=== PATIENT | female | born 1985 | race Caucasian/White ===

== ENCOUNTER 2021-08-02 17:00 | Emergency (ER) | payer MEDICAID, SELFPAY ==
[2021-08-02 17:52] VITALS: BP 129/81; PULSE 101; RESP 16; TEMP 36.6; O2SAT 98; BMI 28.3
--- NOTE | 2021-08-02 17:54 | HMH.EDUTC ---
[facility] Disposition Clinical Impression: UTI (urinary tract infection) Qualifiers: Urinary tract infection type: acute cystitis Hematuria presence: without hematuria Qualified Code(s): N30.00 - Acute cystitis without hematuria Disposition: Home, Self-Care Condition on Discharge: Good Instructions: DI for Urinary Tract Infection (UTI) Additional Instructions: Increase fluids, water and not soda or tea. Can drink cranberry juice or cranberry extract. White front to back Wear cotton underwear Empty bladder after intercourse Start antibiotics immediately and make sure you take the full course although you may start to see improvement over the next 48 hours. You can eat yogurt or take probiotics to decrease diarrhea or yeast infection caused by the antibiotic Be sure to follow-up anytime for new or worsening symptoms in 48 hours for wound urine culture results be sure to let you PCP no recent urine for culture so they can request records and ensure that you have appropriate antibiotic if you are not getting better or getting worse. If symptoms worsen or do not improve return or be seen in the ER. Follow-up with primary care this week. Prescriptions: cephALEXin [Cephalexin 500mg Tab] 500 mg PO BID 7 Days #14 tab Prescription Printed Referrals: Wendy Jarrell APRN [Primary Care Provider] - Time of Disposition: 17:58 Medical Decision Making - Michel Inquiry Pt receiving controlled substance: No Orders (Tests/Meds): ORDERS Category Date Time Status Covid-19 Nasal PCR ([facility]) Routine Lab 08/02/21 17:49 Ordered [facility] HPI - General Chief complaint: Urgent Treatment Center Stated complaint: spot on tounge,sore throat,vomiting,pain back of Time Seen by Provider: 08/02/21 17:54 Mode of Arrival: Ambulatory Source of Information: Patient Limitations: No Limitations - History of Present Illness Provider Complaint: 36 yr old female presents for burning with voiding,freq,urgency and urine has a strong odor, pt states feels like her normal uti,pt states she gets them freq. pt states nasal congestion,sore throat and body aches. wants a covid test - Related Data Previous Rx's Medication Instructions Recorded cephALEXin [Cephalexin 500mg Tab] 500 mg PO BID 7 Days #14 tab 08/02/21 [facility] History - Hepatitis A Screen Attestation statement:: This patient has been screened for Hepatitis A risk factors. I have reviewed the patient's past medical history: Yes ROS Obtained: Yes Systems reviewed as appropriate & no additional complaints - Constitutional Constitutional: Reports system reviewed and no additional complaints, except as docu, Reports body ache, Denies fever(s) - Eyes Eyes: Reports system reviewed and no additional complaints, except as docu, Denies change in vision - ENT Ears, Nose, Mouth, and Throat: Reports system reviewed and no additional complaints, except as docu, Reports nasal congestion, Reports nasal discharge, Reports sore throat - Cardiovascular Cardiovascular: Reports system reviewed and no additional complaints, except as docu, Denies chest pain - Respiratory Respiratory: Reports system reviewed and no additional complaints, except as docu, Denies chest congestion - Gastrointestinal Gastrointestingal: Reports: system reviewed and no additional complaints, except as docu, nausea. Denies: abdominal pain - Genitourinary Female Genitourinary: Reports system reviewed and no additional complaints, except as docu, Reports dysuria, Reports urinary frequency, Reports urinary hesitancy, Reports urinary urgency - Musculoskeletal Musculoskeletal: Reports system reviewed and no additional complaints, except as docu, Denies abnormal gait - Integumentary/Breasts Skin/Breast: Reports system reviewed and no additional complaints, except as docu, Denies rash - Neurologic Neurologic: Reports system reviewed and no additional complaints, except as docu, Denies dizziness - Endocrine Endocrine: Reports
[2021-08-02 18:00] LABS: Apearance,Urine Clear (Clear); Bilirubin,Urine Negative (Negative); Blood, Urine Negative (Negative); Color,Urine Yellow (Yellow); Glucose,Urine (UA) Negative (Negative); Ketones,Urine Negative (Negative); Protein,Urine Negative (Negative); UTC Leukocyte Esterase,Urine Negative (Negative); UTC Nitrate,Urine Negative (Negative); Urobilinogen,Urine 0.2 EU/dl (0.2)
[2021-08-02 18:04] VITALS: BP 129/81; PULSE 101; RESP 16; TEMP 36.6
== END 2021-08-02 18:08 | disposition home or self-care (01) ==
PROVIDERS: Emergency Provider Nurse Practitioner Family; PCP Nurse Practitioner Family
DX: N30.00 Acute cystitis without hematuria (principal); U07.1 COVID-19
CPT/HCPCS: 81003; 99202; C9803; G0463; U0003; U0005

== ENCOUNTER 2021-08-06 23:37 | Emergency (ER) | payer MEDICAID, SELFPAY ==
[2021-08-07 00:37] VITALS: BP 0/0; PULSE 0; RESP 0; TEMP -17.7; TEMP 0
== END 2021-08-07 00:37 | disposition left against medical advice (07) ==
LOC: ER 08-07 00:10
PROVIDERS: Emergency Provider Emergency Medicine
DX: Z53.21 Procedure and treatment not carried out due to patient leaving prior to being seen by health care provider (principal)
CPT/HCPCS: 99211

== ENCOUNTER 2021-08-21 15:15 | Emergency (ER) | payer MEDICAID, SELFPAY ==
[2021-08-21 15:16] VITALS: BP 123/87; PULSE 114; RESP 20; TEMP 36.8; O2SAT 96; BMI 26.5
--- NOTE | 2021-08-21 15:30 | HMH.EDGENADL ---
ED Disposition Clinical Impression: Urinary tract infection Qualifiers: Urinary tract infection type: site unspecified Hematuria presence: with hematuria Qualified Code(s): N39.0 - Urinary tract infection, site not specified; R31.9 - Hematuria, unspecified Disposition: Home, Self-Care Condition on Discharge: Good Instructions: DI for Urinary Tract Infection (UTI) Additional Instructions: Cipro as prescribed. Pyridium as prescribed. Additional instructions for URINARY TRACT INFECTION: Take antibiotic as prescribed. See your physician in 2-3 days for follow up and culture results. Return immediately if you have an uncontrollable fever greater than 102 degrees, severe back or abdominal pain, inability to urinate, or repetitive vomiting. Prescriptions: Ciprofloxacin HCl [Cipro 500mg Tab] 500 mg PO BID #20 tab Transmission Status: Pending to [facility] # Phenazopyridine HCl [Pyridium 200mg Tablet] 200 pow PO TID #6 tab Transmission Status: Pending to [facility] # Referrals: Provider,Referral, [Referring] - - Critical Care Critical Care Time: No Attestation: On , the high probability of a clinically significant, sudden or life threatening deterioration of the following system(s) required my full and direct attention, intervention and personal management. The time I documented below is in addition to time spent performing reported procedures but includes the following listed in this critical care notation. Medical Decision Making - Medical Records Medical records reviewed: Yes: I reviewed the patient's medical records. MR Comment: Seen in the urgent treatment center on 08/02/2021. Complained of back pain, sore throat, spot on her tongue, vomiting. Urine analysis was negative. Culture not performed. Treated with Keflex for UTI based on symptoms consistent with previous UTIs. Had a Covid test which returned positive. - Michel Inquiry Pt receiving controlled substance: No Michel was queried for this patient: Yes Vital Signs: 08/21/21 15:16 Temperature 98.3 F Temperature Source Oral Pulse Rate [Right Radial] 114 H Respiratory Rate 20 Blood Pressure [Right Arm] 123/87 Blood Pressure Mean [Right Arm] 99 Blood Pressure Source [Right Arm] Automatic Cuff Blood Pressure Position [Right Arm] Sitting 02 Sat by Pulse Oximetry 96 Oxygen Delivery Method Room Air - Lab Data Lab Results 08/21/21 15:30: Urine Color Yellow, Urine Appearance Clear, Urine pH 6.5, Ur Specific [place] 1.025, Urine Protein 3+, Urine Glucose (UA) Negative, Urine Ketones Trace, Urine Blood 3+, Urine Nitrate Positive, Urine Bilirubin 2+ A, Urine Urobilinogen 1.0, Ur Leukocyte Esterase 2+ A, Urine RBC Tntc, Urine WBC 5-10, Ur Squamous Epith Cells Occasional, Urine Bacteria 2+ 08/21/21 15:30: WBC 14.7 H, RBC 4.96, Hgb 14.9, Hct 45.1, MCV 90.9, MCH 30.0, MCHC 33.0, RDW 12.8, Plt Count 495 H, MPV 7.3 L, Neut % (Auto) 73.2, Lymph % (Auto) 18.8, [place] % (Auto) 4.5, Eos % (Auto) 2.3, Baso % (Auto) 1.1, Neut # (Auto) 10.7 H, Lymph # (Auto) 2.8, [place] # (Auto) 0.7, Eos # (Auto) 0.3, Baso # (Auto) 0.2 08/21/21 15:30: Urine HCG, Qual Negative 08/21/21 15:30: Sodium 138, Potassium 3.6, Chloride 100, Carbon Dioxide 32 H, Anion Gap 9.6, BUN 12, Creatinine 0.80, Estimated Creat Clear 104, Estimated GFR 81, Est GFR ( Amer) 98, Glucose 97, Calcium 9.1, Total Bilirubin 0.8, AST 32, ALT 21, Alkaline Phosphatase 93, Total Protein 7.5, Albumin 4.8, Globulin 2.7, Albumin/Globulin Ratio 1.8 Result diagrams: 08/21/21 15:30 08/21/21 15:30 Orders (Tests/Meds): ED MEDICATIONS Generic Name Dose Route Start Last Admin Trade Name Freq PRN Reason Stop Dose Admin Levofloxacin/Dextrose 750 mg in 150 mls @ 100 mls/hr 08/21/21 17:09 08/21/21 17:29 Levofloxacin 750mg/150ml Premix IV 08/21/21 18:38 100 mls/hr ONCE ONE Administration Discontinued Medications Generic Name Dose Route Start Last Admin Trade Na
--- NOTE | 2021-08-21 15:51 | CT_ITS ---
PROCEDURE INFORMATION: Exam: CT Abdomen And Pelvis Without Contrast Exam date and time: 08/21/2021 3:51 PM Age: 36 years old Clinical indication: Abdominal pain; Localized; Lower; Additional info: Possible kidney stone TECHNIQUE: Imaging protocol: Computed tomography of the abdomen and pelvis without contrast. Radiation optimization: All CT scans at this facility use at least one of these dose optimization techniques: automated exposure control; mA and/or kV adjustment per patient size (includes targeted exams where dose is matched to clinical indication); or iterative reconstruction. COMPARISON: No relevant prior studies available. FINDINGS: Liver: No mass. Small cyst estimated at 1 cm. Gallbladder and bile ducts: Unremarkable. No ductal dilation. Pancreas: Normal. No ductal dilation. Spleen: Normal. No splenomegaly. Adrenal glands: Normal. No mass. Kidneys and ureters: No calculus or hydronephrosis. Stomach and bowel: No acute findings. No obstruction. No mucosal thickening. Appendix: No evidence of appendicitis. Intraperitoneal space: Unremarkable. No free air. No significant fluid collection. Vasculature: No abdominal aortic aneurysm. Lymph nodes: No significant adenopathy. Urinary bladder: Unremarkable as visualized. Reproductive: Unremarkable as visualized. Bones/joints: No acute findings. Soft tissues: Unremarkable. IMPRESSION: No acute findings.
[2021-08-21 15:59] LABS: Microscopic, Urine URINE MICROSCOPIC (MICROSCOPIC)
[2021-08-21 16:06] LABS: Basophils # 0.2 K/mm3 (0-0.2); Basophils % 1.1 % (0.1-2.0); Eosinophils # 0.3 K/mm3 (0.0-0.4); Eosinophils % 2.3 % (0.1-12.0); Hematocrit 45.1 % (37.0-47.0); Hemoglobin 14.9 g/dL (12.2-16.2); Lymphocytes # 2.8 K/mm3 (0.7-4.5); Lymphocytes % 18.8 % (10-50); Mean Corpuscular Volume 90.9 fl (81-99); Mean Platelet Volume 7.3 fl (7.4-10.4); Monocytes # 0.7 K/mm3 (0.1-1.0); Monocytes % 4.5 % (1.7-9.3); Neutrophils # 10.7 K/mm3 (1.8-7.8); Neutrophils % 73.2 % (37.0-80.0); Platelet Count 495 K/mm3 (142-424); Red Blood Count 4.96 M/mm3 (4.20-5.40); Red Cell Distribution Width 12.8 % (11.5-17.5); White Blood Count 14.7 K/mm3 (4.8-10.8)
[2021-08-21 16:10] LABS: Appearance,Urine CLEAR (Clear); Blood, Urine 3+ (Negative); Color,Urine YELLOW (Yellow); Glucose,Urine (UA) Negative (Negative); Ketones,Urine TRACE (Negative); Leukocyte Esterase,Urine 2+ (Negative); Nitrate,Urine POSITIVE (Negative); PH,Urine 6.5 (5.0-8.5); Protein,Urine 3+ (Negative); Specific Gravity, Urine 1.025 (1.005-1.030)
[2021-08-21 16:17] LABS: Bilirubin,Urine 2+ (Negative); Urine Pregnancy, HCG Qual. Negative (Negative)
[2021-08-21 16:28] LABS: Alanine Aminotransferase 21 U/L (12-78); Albumin Level 4.8 g/dl (3.5-5.0); Albumin/Globulin Ratio 1.8 (1.1-1.8); Alkaline Phosphatase 93 U/L (38-126); Anion Gap 9.6 mEq/L (5-15); Aspartate Amino Transferase 32 U/L (14-36); Bilirubin,Total 0.8 mg/dl (0.2-1.3); Blood Urea Nitrogen 12 mg/dl (7-17); Calcium 9.1 mg/dl (8.4-10.2); Carbon Dioxide 32 mmol/L (22.0-30.0); Chloride 100 mmol/L (98-107); Creatinine Clearance Estimated 104 mL/min (50-200); Estimated Glomerular Filt Rate 81 ml/min (>60); GFR (African American) 98 ML/MIN (>60); Globulin 2.7 g/dL (1.3-3.2); Glucose 97 mg/dl (74-100); Potassium 3.6 mmoL/L (3.5-5.1); Sodium 138 mmol/L (136-145); Total Protein,Serum 7.5 g/dl (6.3-8.2)
[2021-08-21 16:46] LABS: Bacteria,Urine 2+ /lpf; RBC,Urine TNTC #/hpf (0-3); Squamous Epithelial Cell,Urine Occasional #/hpf (0-5)
--- NOTE | 2021-08-21 18:22 | PC.NURSE ---
Pt's family updated.
[2021-08-21 18:56] VITALS: BP 127/79; PULSE 109; RESP 18; TEMP 36.8; O2SAT 98
== END 2021-08-21 19:01 | disposition home or self-care (01) ==
PROVIDERS: Emergency Provider Emergency Medicine; PCP Family Medicine
DX: N30.01 Acute cystitis with hematuria (principal); Z87.442 Personal history of urinary calculi
CPT/HCPCS: 74176; 80053; 81001; 81025; 85025; 87086; 87088; 87186; 96365; 96375; 99283; J1956; J2405

== ENCOUNTER 2021-10-11 15:14 | Emergency (ER) | payer MEDICAID, SELFPAY ==
[2021-10-11 15:25] VITALS: BP 141/79; PULSE 82; RESP 19; TEMP 37; O2SAT 100; BMI 21.3
--- NOTE | 2021-10-11 15:46 | HMH.EDUTC ---
[facility] Disposition Clinical Impression: Possible exposure to STD Disposition: Home, Self-Care Condition on Discharge: Good Instructions: Facts About Sexually Transmitted Infections, How to Detect and Treat STDs Additional Instructions: follow up on labs and testing call for results safe sex practices if any new symptom return or be seen in ed Referrals: Jocelyn Henriquez [Primary Care Provider] - Time of Disposition: 15:56 Medical Decision Making - Michel Inquiry Pt receiving controlled substance: No Vital Signs: 10/11/21 15:25 Temperature 98.6 F Temperature Source Oral Pulse Rate [Right Brachial] 82 Respiratory Rate 19 Blood Pressure [Right Arm] 141/79 H Blood Pressure Mean [Right Arm] 99 Blood Pressure Source [Right Arm] Automatic Cuff Blood Pressure Position [Right Arm] Sitting 02 Sat by Pulse Oximetry 100 Oxygen Delivery Method Room Air Orders (Tests/Meds): ED MEDICATIONS Discontinued Medications Generic Name Dose Route Start Last Admin Trade Name Freq PRN Reason Stop Dose Admin Penicillin G Benzathine 2,400,000 unit 10/11/21 15:40 Penicillin G Benzathine 1,200,000 Units/2ml Syringe IM 10/11/21 15:41 ONCE ONE ORDERS Category Date Time Status HIV-1 Quant. RNA PCR Routine Lab 10/11/21 15:44 Ordered HSV 1 and 2-Specific Ab, IgG Stat Lab 10/11/21 15:44 Ordered Hepatitis Panel (4) Stat Lab 10/11/21 15:44 Ordered Rapid Plasma Reagin Ab Titer Stat Lab 10/11/21 15:44 Ordered [facility] HPI - General Chief complaint: Urgent Treatment Center Stated complaint: poss STD Time Seen by Provider: 10/11/21 15:46 Mode of Arrival: Ambulatory Source of Information: Patient Limitations: No Limitations Description of Symptoms (Recalled from Triage Doc. by RN): PATIENT REQUESTING CHECK FOR STD'S D/T PARTNER BEING TESTED HEENT Symptoms (Recalled from RN notes): No Resp Symptoms (Recalled from RN notes): No Skin Symptoms (Recalled from RN notes): No MS Symptoms (Recalled from RN notes): No Functional Status (Recalled from RN notes): WNL - History of Present Illness Provider Complaint: 36 yr old female presents for std testing and treatment. pt states she had sex with 2 males recently and one was treated for syphilis. her partner has symptoms ( red areas on penis) she states he had these areas prior to intercourse. pt states she did have unprotected sex and oral sex with him. pt states no discharge or burning but does have a sore throat - Related Data Allergies Allergy/AdvReac Type Severity Reaction Status Date / Time aspirin Allergy Verified 08/02/21 17:56 - Worker's Comp Is this a Worker's Comp case?: No [facility] History - Hepatitis A Screen Drug use history?: No High risk sexual behaviors?: No History of sexually transmitted infection?: No Currently employed?: No Childcare worker?: No Do you have indoor plumbing?: Yes Do you have electricity?: Yes Attestation statement:: This patient has been screened for Hepatitis A risk factors. I have reviewed the patient's past medical history: Yes ROS Obtained: Yes Systems reviewed as appropriate & no additional complaints - Constitutional Constitutional: Reports system reviewed and no additional complaints, except as docu, Denies fatigue, Denies fever(s), Denies poor appetite - Eyes Eyes: Reports system reviewed and no additional complaints, except as docu, Denies dry eyes - ENT Ears, Nose, Mouth, and Throat: Reports system reviewed and no additional complaints, except as docu, Denies abnormal hearing, Denies nasal congestion, Denies nasal discharge, Denies sinus pressure, Reports sore throat - Cardiovascular Cardiovascular: Reports system reviewed and no additional complaints, except as docu, Denies chest pain - Respiratory Respiratory: Reports system reviewed and no additional complaints, except as docu, Denies change in phlegm color - Gastrointestinal Gastrointestingal: Reports: system reviewed and no additional compl
[2021-10-11 15:55] VITALS: BP 141/79; PULSE 82; RESP 19; TEMP 37; O2SAT 100
[2021-10-14 04:56] LABS: Hep A Ab, IgM Negative (Negative); Hepatitis B Core Antibody IgM Negative (Negative); Hepatitis B Surface Antigen Negative (Negative); Hepatitis C Antibody 0.1 s/co ratio (0.0-0.9)
[2021-10-14 11:24] LABS: Rapid Plasma Reagin Ab Titer Non Reactive (NonRea<1:1)
[2021-10-14 23:17] LABS: Neisseria gonorrhoeae, NAA Negative (Negative)
[2021-10-15 03:13] LABS: HIV 1 RNA, Real time PCR <20 copies/mL (.)
== END 2021-10-11 16:10 | disposition home or self-care (01) ==
PROVIDERS: Emergency Provider Nurse Practitioner Family; PCP Family Medicine
DX: J02.9 Acute pharyngitis, unspecified (principal); Z11.3 Encounter for screening for infections with a predominantly sexual mode of transmission
CPT/HCPCS: 80074; 86592; 86695; 86790; 87210; 87491; 87536; 87591; 96372; 99213; G0463; J0561

== ENCOUNTER 2021-10-29 19:50 | Emergency (ER) | payer MEDICAID, SELFPAY ==
--- NOTE | 2021-10-29 19:46 | ECG_ITS ---
APPROVED REPORT Exam: Resting ECG HR:101 bpm ECG Measurements Heart Rate 101 AXES AR 141 P 69 QRSd 85 QRS 60 QT 344 T 53 QTc 402 Conclusion SINUS TACHYCARDIA Left atrial abnormality ABNORMAL RHYTHM ECG UNCONFIRMED REPORT Electronically signed by : Robert Moffett MD 10/30/2021 11:45:46
[2021-10-29 19:50] VITALS: BP 145/91; PULSE 107; RESP 22; TEMP 36.4; O2SAT 99; BMI 27.4
[2021-10-29 20:17] VITALS: BP 123/59; PULSE 90; O2SAT 100
--- NOTE | 2021-10-29 20:17 | XR_ITS ---
PROCEDURE INFORMATION: Exam: XR Chest Exam date and time: 10/29/2021 8:17 PM Age: 36 years old Clinical indication: Sternal or substernal pain; Additional info: Chest pain, smoker TECHNIQUE: Imaging protocol: XR of the chest. Views: 2 views. COMPARISON: CT ABDOMEN PELVIS WO CON 08/21/2021 4:03 PM FINDINGS: Lungs: Unremarkable. No consolidation. Pleural spaces: Unremarkable. No pleural effusion. No pneumothorax. Heart/Mediastinum: Unremarkable. No cardiomegaly. Bones/joints: Unremarkable. IMPRESSION: No acute findings.
[2021-10-29 20:26] LABS: POC Glucose,Bedside 95 (70-110)
[2021-10-29 20:27] LABS: Basophils # 0.2 K/mm3 (0-0.2); Eosinophils # 0.2 K/mm3 (0.0-0.4); Eosinophils % 1.9 % (0.1-12.0); Hematocrit 46.2 % (37.0-47.0); Hemoglobin 15.3 g/dL (12.2-16.2); Lymphocytes # 2.8 K/mm3 (0.7-4.5); Lymphocytes % 34.3 % (10-50); Mean Corpuscular Hemoglobin 30.2 pg (27.0-31.2); Mean Corpuscular Volume 91.4 fl (81-99); Mean Platelet Volume 7.9 fl (7.4-10.4); Monocytes # 0.4 K/mm3 (0.1-1.0); Monocytes % 4.9 % (1.7-9.3); Neutrophils # 4.6 K/mm3 (1.8-7.8); Neutrophils % 56.9 % (37.0-80.0); Platelet Count 386 K/mm3 (142-424); Red Blood Count 5.06 M/mm3 (4.20-5.40); Red Cell Distribution Width 13.3 % (11.5-17.5); White Blood Count 8.1 K/mm3 (4.8-10.8)
[2021-10-29 20:29] LABS: Microscopic, Urine URINE MICROSCOPIC (MICROSCOPIC)
[2021-10-29 20:31] VITALS: BP 142/74; PULSE 98; O2SAT 98
[2021-10-29 20:31] LABS: Coronavirus 19, PCR Not Detected (NotDetected); Influenza A, PCR Not Detected (NotDetected); Influenza B, PCR Not Detected (NotDetected)
[2021-10-29 20:38] LABS: Appearance,Urine CLEAR (Clear); Bilirubin,Urine Negative (Negative); Blood, Urine Negative (Negative); Color,Urine YELLOW (Yellow); Glucose,Urine (UA) Negative (Negative); Ketones,Urine Negative (Negative); Leukocyte Esterase,Urine Negative (Negative); Nitrate,Urine Negative (Negative); Protein,Urine Negative (Negative); Specific Gravity, Urine >= 1.030 (1.005-1.030); Urobilinogen,Urine 0.2 EU/dl (0.2)
[2021-10-29 20:39] LABS: Chloride 102 mmol/L (98-107)
[2021-10-29 20:40] LABS: Potassium 3.6 mmoL/L (3.5-5.1); Sodium 139 mmol/L (136-145)
[2021-10-29 20:41] LABS: Urine Pregnancy, HCG Qual. Negative (Negative)
[2021-10-29 20:42] LABS: Alanine Aminotransferase 28 U/L (12-78); Aspartate Amino Transferase 20 U/L (14-36); Blood Urea Nitrogen 12 mg/dl (7-17); Creatinine Clearance Estimated 123 mL/min (50-200); Estimated Glomerular Filt Rate 95 ml/min (>60); GFR (African American) 115 ML/MIN (>60)
[2021-10-29 20:43] LABS: Albumin Level 4.5 g/dl (3.5-5.0); Albumin/Globulin Ratio 1.4 (1.1-1.8); Alkaline Phosphatase 104 U/L (38-126); Anion Gap 10.6 mEq/L (5-15); Bilirubin,Total 0.7 mg/dl (0.2-1.3); Calcium 8.5 mg/dl (8.4-10.2); Carbon Dioxide 30 mmol/L (22.0-30.0); Globulin 3.3 g/dL (1.3-3.2); Glucose 83 mg/dl (74-100); Total Protein,Serum 7.8 g/dl (6.3-8.2)
[2021-10-29 20:48] LABS: Barbiturates Screen,Urine Negative ng/ml (<200)
[2021-10-29 20:49] LABS: Benzodiazepines Screen,Urine Negative ng/ml (<200)
[2021-10-29 20:50] LABS: Cannabinoid Screen,Urine Positive ng/ml (<50)
[2021-10-29 20:51] LABS: Cocaine Screen,Urine Negative ng/ml (<300)
[2021-10-29 20:52] LABS: Methadone Screen,Urine Negative ng/ml (<300); Opiate Screen,Urine Negative ng/ml (<300)
[2021-10-29 20:53] LABS: Phencyclidine Screen,Urine Negative ng/ml (<25)
[2021-10-29 21:11] LABS: D-Dimer 0.71 ug/mL (0.0-0.5)
[2021-10-29 21:20] LABS: Troponin I < 0.01 ng/ml (0.00-0.034)
--- NOTE | 2021-10-29 21:24 | HMH.EDGENADL ---
ED Disposition Clinical Impression: Chest pain Qualifiers: Chest pain type: intercostal pain Qualified Code(s): R07.82 - Intercostal pain Disposition: Home, Self-Care Condition on Discharge: Good Additional Instructions: Please note that due to the unexplained nature of the fainting episode you experienced, we are unable to rule out a seizure today. For this reason, per [place] law you are not allowed to drive until you have been free of altered mental state, fainting or seizure-like episodes for a period of [address] within the next 90 days. Additionally, you have been given a referral for an outpatient neurology follow-up. Also, please speak with your primary care physician regarding monitoring with a Holter monitor for cardiac arrhythmia given your syncopal episode. If your condition worsens or any other concerning symptoms that we discussed arise please return promptly to the emergency department. The symptoms include, but are not limited to, fever, worsening shortness of breath, coughing up blood, swelling of an extremity in comparison to the other or recurrence of fainting or altered mental state. Please refrain from using meth as it is very harmful to your health. Referrals: Provider,Referral, [Primary Care Provider] - - Critical Care Critical Care Time: No Attestation: On 10/29/21, the high probability of a clinically significant, sudden or life threatening deterioration of the following system(s) required my full and direct attention, intervention and personal management. The time I documented below is in addition to time spent performing reported procedures but includes the following listed in this critical care notation. Medical Decision Making - Medical Records Medical records reviewed: Yes: I reviewed the patient's medical records. - Michel Inquiry Pt receiving controlled substance: No Vital Signs: 10/29/21 19:50 Temperature 97.5 F L Temperature Source Oral Pulse Rate [Left] 107 H Respiratory Rate 22 Blood Pressure [Right Arm] 145/91 H Blood Pressure Mean [Right Arm] 109 02 Sat by Pulse Oximetry 99 Oxygen Delivery Method Room Air - Lab Data Lab results reviewed: Yes: I reviewed the patient's lab results. Lab Results 10/29/21 20:08: Urine Color Yellow, Urine Appearance Clear, Urine pH 6.0, Ur Specific [place] >= 1.030, Urine Protein Negative, Urine Glucose (UA) Negative, Urine Ketones Negative, Urine Blood Negative, Urine Nitrate Negative, Urine Bilirubin Negative, Urine Urobilinogen 0.2, Ur Leukocyte Esterase Negative, Urine RBC None, Urine WBC Occasional, Ur Squamous Epith Cells 3-5, Urine Bacteria 1+ 10/29/21 20:08: Urine HCG, Qual Negative 10/29/21 20:08: Urine Opiates Screen Negative, Urine Methadone Screen Negative, Ur Barbituates Screen Negative, Ur Phencyclidine Scrn Negative, Ur Amphetamines Screen Positive H, U Benzodiazepines Scrn Negative, Urine Cocaine Screen Negative, U Marijuana (THC) Screen Positive H 10/29/21 20:17: WBC 8.1, RBC 5.06, Hgb 15.3, Hct 46.2, MCV 91.4, MCH 30.2, MCHC 33.0, RDW 13.3, Plt Count 386, MPV 7.9, Neut % (Auto) 56.9, Lymph % (Auto) 34.3, [place] % (Auto) 4.9, Eos % (Auto) 1.9, Baso % (Auto) 2.0, Neut # (Auto) 4.6, Lymph # (Auto) 2.8, [place] # (Auto) 0.4, Eos # (Auto) 0.2, Baso # (Auto) 0.2 10/29/21 20:17: Sodium 139, Potassium 3.6, Chloride 102, Carbon Dioxide 30, Anion Gap 10.6, BUN 12, Creatinine 0.70, Estimated Creat Clear 123, Estimated GFR 95, Est GFR ( Amer) 115, Glucose 83, Calcium 8.5, Total Bilirubin 0.7, AST 20, ALT 28, Alkaline Phosphatase 104, Total Protein 7.8, Albumin 4.5, Globulin 3.3 H, Albumin/Globulin Ratio 1.4 10/29/21 20:17: D-Dimer 0.71 H 10/29/21 20:17: Troponin I < 0.01 10/29/21 20:19: POC Glucose 95 10/29/21 20:28: SARS-CoV-2 (PCR) Not detected, Influenza A Untype (PCR) Not detected, Influenza Type B (PCR) Not detected Result diagrams: 10/29/21 20:17 10/29/21 20:17 Orders (Tests/Meds): ED MEDICATIONS Generic
[2021-10-29 21:26] VITALS: BP 152/84; PULSE 89; O2SAT 100
[2021-10-29 21:27] LABS: WBC,Urine Occasional #/hpf (0-3)
[2021-10-29 21:28] LABS: Bacteria,Urine 1+ /lpf
[2021-10-29 21:30] VITALS: BP 131/90; PULSE 84; O2SAT 99
[2021-10-29 21:35] LABS: Amphetamine/Metha Screen,Urine Positive ng/ml (<1000)
[2021-10-29 22:36] VITALS: BP 140/92; PULSE 87; RESP 18; TEMP 36.7; O2SAT 99
== END 2021-10-29 23:06 | disposition home or self-care (01) ==
PROVIDERS: Emergency Provider Emergency Medicine
DX: R07.82 Intercostal pain (principal); F15.10 Other stimulant abuse, uncomplicated; F19.10 Other psychoactive substance abuse, uncomplicated
CPT/HCPCS: 71046; 80053; 80305; 81001; 81025; 82962; 84484; 85025; 85378; 93005; 99283; C9803; U0003; U0005